=== PATIENT | female | born 1965 | race Caucasian/White ===

== ENCOUNTER 2017-02-26 16:31 | Emergency (ER) | payer BC ==
[2017-02-26 17:17] VITALS: BP 107/72
--- NOTE | 2017-02-26 17:26 | UC ---
Throat Pain/Nasal Jameel HPI - HPI Summary HPI Summary: sinus pain and pressure x 7 days + nasal congestion , pnd, cough no fever, no chills - History of Current Complaint Chief Complaint: UCRespiratory Stated Complaint: SINUS Time Seen by Provider: 02/26/17 17:10 Hx Obtained From: Patient Hx Last Menstrual Period: 02/11/14 ?: No Onset/Duration: Gradual Onset, Lasting Days - 7, Still Present Severity: Moderate Cough: Nonproductive Associated Signs & Symptoms: Positive: Sinus Discomfort, Nasal Discharge. Negative: Fever, Rash - Allergies/Home Medications Allergies/Adverse Reactions: Allergies Allergy/AdvReac Type Severity Reaction Status Date / Time No Known Allergies Allergy Verified 02/26/17 17:12 Home Medications: Home Medications Migraine Med 2 tab BID 02/26/17 [History Confirmed 02/26/17] PMH/Surg Hx/FS Hx/Imm Hx - Additional Past Medical History Additional PMH: sleep apnea Endocrine History: Thyroid Disease Neurological History: Migraine - Surgical History Surgical History: None - Family History Known Family History: Negative: Diabetes - Social History Alcohol Use: None Substance Use Type: None Smoking Status (MU): Never Smoked Tobacco - Immunization History Most Recent Influenza Vaccination: NO Review of Systems Constitutional: Negative Skin: Negative Eyes: Negative ENT: Nasal Discharge, Sinus Congestion, Sinus Pain/Tenderness Respiratory: Cough Cardiovascular: Negative Gastrointestinal: Negative Is Patient Immunocompromised?: No All Other Systems Reviewed And Are Negative: Yes Physical Exam Triage Information Reviewed: Yes Appearance: Well-Appearing, No Pain Distress, Well-Nourished Vital Signs: Initial Vital Signs Temp 97 F 02/26/17 17:14 Pulse 75 02/26/17 17:14 Resp 16 02/26/17 17:14 BP 107/72 02/26/17 17:14 Pulse Ox 97 02/26/17 17:14 Vital Signs Reviewed: Yes Eyes: Positive: Conjunctiva Clear ENT: Positive: Normal ENT inspection, Hearing grossly normal, Pharynx normal, Nasal drainage, TMs normal, Sinus tenderness Neck exam: Normal Neck: Positive: Supple, Nontender, No Lymphadenopathy Respiratory: Positive: Chest non-tender, Lungs clear, Normal breath sounds, No respiratory distress, No accessory muscle use Cardiovascular: Positive: RRR, No Murmur, Pulses Normal Neurological Exam: Normal Neurological: Positive: Alert Skin Exam: Normal Throat Pain/Nasal Course/Dx - Differential Dx/Diagnosis Provider Diagnoses: sinusitis Discharge - Discharge Plan Condition: Stable Disposition: HOME Prescriptions: Amoxicillin/Clavulanate TAB* [Augmentin TAB 875*] 875 mg PO BID #20 tab Patient Education Materials: Sinusitis (ED) Referrals: Yuval Arevalo MD [Primary Care Provider] - If Needed
== END 2017-02-26 17:32 | disposition home or self-care (01) ==
LOC: UCCORT 16:31
DX: J32.9 Chronic sinusitis, unspecified (principal)
CPT/HCPCS: 99212; G0463

== ENCOUNTER 2019-01-10 13:49 | Emergency (ER) | payer BC ==
--- NOTE | 2019-01-10 14:16 | UC ---
Throat Pain/Nasal Jameel HPI - HPI Summary HPI Summary: Patient is a 53yo female presenting with sore throat x5 days. Patient states soreness has worsened over last 2 days and that it is hard to sleep at night because her CPAP machine makes her throat dry. States symptoms better throughout day since she can keep throat moistened. Notes mild sinus congestion. Denies ear symptoms. Denies cough. Denies fever and chills. Patient states she cannot stop using her cpap because she will get migraines. 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 - History of Current Complaint Stated Complaint: SORE THROAT Hx Obtained From: Patient Hx Last Menstrual Period: 02/11/14 Onset/Duration: Gradual Onset, Lasting Days - Allergies/Home Medications Allergies/Adverse Reactions: Allergies Allergy/AdvReac Type Severity Reaction Status Date / Time No Known Allergies Allergy Verified 01/10/19 14:10 Home Medications: Home Medications Allopurinol TAB* [Zyloprim 100 MG TAB*] 100 mg PO DAILY 01/10/19 [History Confirmed 01/10/19] Cholecalciferol TAB* [Vitamin D TAB*] 400 unit PO DAILY 01/10/19 [History Confirmed 01/10/19] Magnesium Oxide [Magnesium] 200 mg PO DAILY 01/10/19 [History Confirmed 01/10/19 ] Meloxicam 7.5 mg PO BEDTIME 01/10/19 [History Confirmed 01/10/19] PMH/Surg Hx/FS Hx/Imm Hx Endocrine History: Hypothyroidism Respiratory History: Other - KRISHNA Neurological History: Migraine - Surgical History Surgical History: Yes Surgery Procedure, Year, and Place: UTERINE ABLATION. RIGHT KNEE TORN MENISCUS. CALCIFICATIONS SCRAPED OUT OF URETER. TUBAL - Family History Known Family History: Positive: Unknown, Non-Contributory Negative: Diabetes - Social History Occupation: Employed Full-time Alcohol Use: None Substance Use Type: None Smoking Status (MU): Never Smoked Tobacco - Immunization History Most Recent Influenza Vaccination: NO Review of Systems All Other Systems Reviewed And Are Negative: Yes Constitutional: Positive: Negative ENT: Positive: Sore Throat, Sinus Congestion. Negative: Ear Ache, Nasal Discharge, Sinus Pain/Tenderness Respiratory: Positive: Negative. Negative: Cough Cardiovascular: Positive: Negative Neurological: Positive: Negative Physical Exam Triage Information Reviewed: Yes Appearance: Well-Appearing, No Pain Distress, Well-Nourished Vital Signs: Vital Signs (72 hours) 01/10/19 14:13 Temperature 98.1 F Pulse Rate 87 Respiratory 18 Rate Blood Pressure 102/68 (mmHg) O2 Sat by Pulse 98 Oximetry Lab Results 01/10/19 Range/Units 14:49 Group A Strep Rapid Negative (Negative) Vital Signs Reviewed: Yes Eyes: Positive: Conjunctiva Clear ENT: Positive: Hearing grossly normal, Pharyngeal erythema, TMs normal, Uvula midline, Other - ulceration noted on uvula. Negative: Nasal congestion, Nasal drainage, Tonsillar swelling, Tonsillar exudate, Sinus tenderness Neck exam: Normal Neck: Positive: Supple, Nontender, No Lymphadenopathy Respiratory Exam: Normal Respiratory: Positive: Lungs clear, Normal breath sounds, No respiratory distress Cardiovascular Exam: Normal Cardiovascular: Positive: RRR Neurological: Positive: Alert Psychological: Positive: Age Appropriate Behavior Throat Pain/Nasal Course/Dx - Course Course Of Treatment: Discussed negative strep test and no sign of thrush with patient. Educated on viral pharyngitis and symptomatic treatment. Instructed to follow up with PCP if symptoms persist. Patient voiced understanding and agreed with treatment plan. Dr. Yang also examined the patient and agreed with treatment plan. - Differential Dx/Diagnosis Provider Diagnosis: Pharyngitis Discharge ED - Sign-Out/Discharge Documenting (check all that apply): Patient Departure All imaging exams completed and their final reports reviewed: No Studies - Discharge Plan Condition: Stable Disposition: HOME Patient Education Materials: Pharyngitis (ED) Referrals: Yuval Arevalo MD [Primary Care Provider] - If Needed Additional Instructions: As discussed, you tested negative for strep throat today. Your symptoms are likely caused by a virus and should resolve with time. You may take ibuprofen and/or tylenol as directed for fever and pain relief. You may use over the counter throat sprays or lozenges for symptomatic relief. Get plenty of rest and fluids. Follow up with your PCP if symptoms worsen or do not resolve in 7 days. - Billing Disposition and Condition Condition: STABLE Disposition: Home
[2019-01-10 14:22] VITALS: BP 102/68
== END 2019-01-10 15:17 | disposition home or self-care (01) ==
LOC: UCCORT 13:49
DX: J02.9 Acute pharyngitis, unspecified (principal); J34.89 Other specified disorders of nose and nasal sinuses; G47.33 Obstructive sleep apnea (adult) (pediatric)
CPT/HCPCS: 87651; 99211; G0463

== ENCOUNTER 2022-08-17 09:49 | Inpatient (IN) ==
[~2022-08-17 09:49] MED LIST: Buffered Lidocaine 1% SYRIN 1 ml INTRADERM ONE; Dexamethasone IV 4 MG/ML VIAL 1 ml VIAL IV SLOW PU ONE; Famotidine IV 10 MG/ML 2 ml VIAL (20 mg) IV ONE; Lactated Ringers 1000 ml BAG 1,000 ML IV SCH; ROPIVACAINE 5 MG/ML 30 ML BTL (0.5%) ONE
[2022-08-17] MEDS ORDERED: ceFAZolin 2 GM in NS PREMIX 2 GM/100 ML BAG IVPB ONE (10:32)
[2022-08-17] MEDS ORDERED: Famotidine IV 10 MG/ML 2 ml VIAL (20 mg) ONE (10:32)
[2022-08-17] MEDS ORDERED: Buffered Lidocaine 1% SYRIN 1 ml ONE (10:32)
[2022-08-17] MEDS ORDERED: Dexamethasone IV 4 MG/ML VIAL 1 ml VIAL ONE (10:32)
[2022-08-17 10:52] LABS: Rapid COVID-19 Molecular Undetected (Undetected)
[2022-08-17] MEDS ORDERED: fentaNYL 100 mcg/2 ml 50 MCG/ML VIAL ONE ×3 (10:58→16:04)
[2022-08-17] MEDS ORDERED: Midazolam 2 mg/2 ml VIAL 1 mg/ml 2 ml VIAL (2 mg) ONE ×2 (10:58→12:33)
[2022-08-17] MEDS ORDERED: ROPIVACAINE 5 MG/ML 30 ML BTL (0.5%) ONE ×2 (11:49→12:09)
[2022-08-17] MEDS ORDERED: Ropivacaine 5 MG/ML 20 ML VIAL 0.5% (100 MG) ONE (12:33)
[2022-08-17] MEDS ORDERED: Naloxone 0.4 mg VIAL 0.4 mg/ml 1 ml VIAL IV PRN (13:39)
[2022-08-17] MEDS ORDERED: Propofol 10 MG/ML 20 ML BTL ONE ×2 (14:20→15:09)
[2022-08-17] MEDS ORDERED: Lactulose 30 ml UDC PO PRN (15:48)
[2022-08-17] MEDS ORDERED: Ondansetron ODT 4 mg TAB 4 MG TAB PO PRN (15:48)
[2022-08-17] MEDS ORDERED: Magnesium Hydroxide LIQ 30 ML UDC PO PRN (15:48)
[2022-08-17] MEDS ORDERED: Morphine 2 MG/ML SYRINGE IV PRN (15:48)
[2022-08-17] MEDS: fentaNYL 100 mcg/2 ml 50 MCG/ML VIAL IV PRN ×4 (15:56→16:28)
[2022-08-17] MEDS: Morphine 10 MG/ML VIAL (1 ml) IV PRN ×2 (16:51→17:25)
[2022-08-17] MEDS ORDERED: Morphine 4 MG/ML VIAL (1 ml) ONE (16:51)
[2022-08-17] MEDS ORDERED: Ondansetron 4 mg VIAL 2 MG/ML 2 ml VIAL ONE (17:47)
[2022-08-17] MEDS: Ondansetron 4 mg VIAL 2 MG/ML 2 ml VIAL IV PRN (17:51)
[2022-08-17] MEDS: Lactated Ringers 1000 ml BAG 1,000 ML IV SCH (18:46)
[2022-08-17] MEDS: Magnesium Hydroxide LIQ 30 ML UDC PO SCH (21:12)
[2022-08-17] MEDS: ceFAZolin 1 GM ADVAN 1 GM in NS 0.9% 50 ML 50 ML IVPB SCH (21:13)
[2022-08-18] MEDS: Lactated Ringers 1000 ml BAG 1,000 ML IV SCH (04:45)
[2022-08-18] MEDS: ceFAZolin 1 GM ADVAN 1 GM in NS 0.9% 50 ML 50 ML IVPB SCH ×2 (04:47→14:04)
[2022-08-18 06:29] LABS: Hemoglobin 11.7 g/dL (11.5-14.3); Mean Platelet Volume 8.4 fL (7.5-11.2); Platelet Count 135 10^3/uL (150-450)
[2022-08-18 06:44] LABS: Creatinine, Serum 0.67 mg/dL (0.51-0.95); Potassium 3.8 mmol/L (3.5-5.0); eGFR CKD-EPI 100.6 (>60)
[2022-08-18] MEDS: Vitamin THERAPEUTIC TAB PO SCH (07:46)
[2022-08-18] MEDS: Magnesium Hydroxide LIQ 30 ML UDC PO SCH ×2 (07:46→20:58)
[2022-08-18] MEDS: Ondansetron 4 mg VIAL 2 MG/ML 2 ml VIAL IV PRN (09:55)
[2022-08-19 06:03] LABS: Hematocrit 29.8 % (35-45); Hemoglobin 10.3 g/dL (11.5-14.3); Mean Platelet Volume 8.5 fL (7.5-11.2); Platelet Count 113 10^3/uL (150-450)
[2022-08-19] MEDS: Magnesium Hydroxide LIQ 30 ML UDC PO SCH (07:54)
[2022-08-19] MEDS: Vitamin THERAPEUTIC TAB PO SCH (07:54)
[2022-08-19 08:21] LABS: Albumin 3.6 g/dL (3.2-5.2); Albumin/Globulin Ratio 1.4 (1-3); Calcium 8.3 mg/dL (8.6-10.3); Creatinine, Serum 0.74 mg/dL (0.51-0.95); Globulin 2.6 g/dL (2-4); Potassium 3.7 mmol/L (3.5-5.0); Total Bilirubin 0.5 mg/dL (0.2-1.0); Total Protein 6.2 g/dL (6.4-8.9); eGFR CKD-EPI 93.1 (>60)
[2022-08-19] MEDS ORDERED: Potassium Chlor 10 meq TAB PO ONE (08:57)
[2022-08-19 14:06] VITALS: BP 104/67
== END 2022-08-19 15:50 | disposition home or self-care (01) | DRG 302 ==
LOC: AA 09:49 → INTOOBSV 09:49 → SSU 15:48
PROVIDERS: ADMIT Orthopaedic Surgery Adult Reconstructive Orthopaedic Surgery; ATTEND Orthopaedic Surgery Adult Reconstructive Orthopaedic Surgery